=== PATIENT | male | born 1980 | race Caucasian/White ===

== ENCOUNTER 2018-01-09 18:24 | Emergency (ER) | payer OTHER ==
[~2018-01-09] VITALS: Ht 185.4 cm; Wt 95.5 kg
[2018-01-09 18:38] VITALS: BP 140/83
[2018-01-09] MEDS ORDERED: HYDROcodone/acetaminophen 5mg/325mg tablet PO ONE (20:55)
[2018-01-09] MEDS ORDERED: IBUP-1986 PO (22:28)
== END 2018-01-09 22:34 | disposition home or self-care (01) ==
LOC: ER 18:25
DX: S82.832A Other fracture of upper and lower end of left fibula, initial encounter for closed fracture (principal); S50.312A Abrasion of left elbow, initial encounter; S80.212A Abrasion, left knee, initial encounter; Z56.0 Unemployment, unspecified; V19.9XXA Pedal cyclist (driver) (passenger) injured in unspecified traffic accident, initial encounter; Y93.89 Activity, other specified; Y92.89 Other specified places as the place of occurrence of the external cause; Y99.8 Other external cause status
CPT/HCPCS: 29515; 73080; 73564; 73590; 99284

== ENCOUNTER 2020-02-07 11:35 | Emergency (ER) | payer MEDICAID ==
[~2020-02-07] VITALS: Ht 185.4 cm; Wt 107.0 kg
[~2020-02-07 11:35] MED LIST: IBUP-1986 PO
[2020-02-07 11:50] VITALS: BP 160/87
--- NOTE | 2020-02-07 12:11 | NUR ---
Seen and assessed by provider.
== END 2020-02-07 12:12 | disposition home or self-care (01) ==
LOC: ER 11:35
DX: F15.10 Other stimulant abuse, uncomplicated (principal); Z72.89 Other problems related to lifestyle; Z56.0 Unemployment, unspecified; Z79.899 Other long term (current) drug therapy
CPT/HCPCS: 99281

== ENCOUNTER 2020-07-04 14:11 | Emergency (ER) | payer MEDICAID ==
[~2020-07-04] VITALS: Ht 185.4 cm; Wt 112.7 kg
[2020-07-04 14:59] VITALS: BP 151/92
[2020-07-04 15:37] LABS: BASOPHILS # (AUTO) 0.1 X10'3 (0-0.2); EOSINOPHILS # (AUTO) 0.1 X10'3 (0-0.9); EOSINOPHILS % (AUTO) 1.5 % (0-6); HEMATOCRIT 48.2 % (42.0-52.0); HEMOGLOBIN 16.9 g/dl (14.0-17.9); LYMPHOCYTES % (AUTO) 31.3 % (21-51); MEAN CORPUSCULAR HEMOGLOBIN 32.5 PG (27.0-31.0); MEAN CORPUSCULAR VOLUME 92.6 FL (78-98); MEAN PLATELET VOLUME 8.7 FL (7.4-10.4); MONOCYTES # (AUTO) 0.6 X10'3 (0-0.9); NEUTROPHILS # (AUTO) 3.6 X10'3 (1.8-7.7); NEUTROPHILS % (AUTO) 56.2 % (42-75); PLATELET COUNT 182 X10'3 (140-440); RED BLOOD COUNT 5.21 X10'6 (4.70-6.10); RED CELL DISTRIBUTION WIDTH 12.7 % (11.5-14.5); WHITE BLOOD COUNT 6.5 X10'3 (4.5-11.0)
[2020-07-04 15:50] LABS: ALANINE AMINOTRANSFERASE 48 U/L (12-78); ALBUMIN 3.8 G/DL (3.4-5.0); ALBUMIN/GLOBULIN RATIO 0.9 (1.1-1.5); ALKALINE PHOSPHATASE 49 IU/L (46-116); ANION GAP 10 (8-16); ASPARTATE AMINO TRANSFERASE 27 U/L (10-37); BILIRUBIN,TOTAL 0.6 MG/DL (0.1-1.0); BLOOD UREA NITROGEN 16 MG/DL (7-18); BUN/CREATININE RATIO 17.2 (5.4-32.0); CALCIUM 9.6 MG/DL (8.5-10.1); CHLORIDE 107 MMOL/L (99-107); CREATININE 0.93 MG/DL (0.60-1.10); GLUCOSE 102 MG/DL (70-104); SODIUM 141 MMOL/L (135-145); TOTAL CARBON DIOXIDE 24.1 MMOL/L (24-32); TOTAL PROTEIN 7.9 G/DL (6.4-8.2); eGFR > 90 ML/MIN
== END 2020-07-04 16:05 | disposition home or self-care (01) ==
LOC: ER 14:12
DX: R53.83 Other fatigue (principal); J02.9 Acute pharyngitis, unspecified; R05 Cough; R09.81 Nasal congestion; Z86.19 Personal history of other infectious and parasitic diseases; Z79.899 Other long term (current) drug therapy; Z72.89 Other problems related to lifestyle; Z56.0 Unemployment, unspecified
CPT/HCPCS: 36415; 80053; 85025; 99283

== ENCOUNTER 2020-09-19 12:20 | Emergency (ER) | payer MEDICAID ==
[~2020-09-19] VITALS: Ht 185.4 cm; Wt 105.6 kg
[2020-09-19 12:29] VITALS: BP 135/81
[2020-09-19] MEDS ORDERED: NICO-687 TOP (13:08)
== END 2020-09-19 13:16 | disposition home or self-care (01) ==
LOC: ER 12:20
DX: F15.10 Other stimulant abuse, uncomplicated (principal); Z72.0 Tobacco use; Z72.89 Other problems related to lifestyle; Z56.0 Unemployment, unspecified; Z79.899 Other long term (current) drug therapy
CPT/HCPCS: 99282

== ENCOUNTER 2021-06-14 23:35 | Emergency (ER) | payer MEDICAID ==
[~2021-06-14] VITALS: Ht 188 cm; Wt 114.5 kg
[2021-06-15 00:07] VITALS: BP 173/93
[2021-06-15] MEDS ORDERED: HYDROcodone/acetaminophen 10/325mg tab PO ONE (02:05)
== END 2021-06-15 02:18 | disposition home or self-care (01) ==
LOC: ER 23:35
DX: U07.1 COVID-19 (principal); R50.9 Fever, unspecified; G43.909 Migraine, unspecified, not intractable, without status migrainosus; F17.200 Nicotine dependence, unspecified, uncomplicated; Z72.89 Other problems related to lifestyle; Z56.0 Unemployment, unspecified; Z79.899 Other long term (current) drug therapy
CPT/HCPCS: 99283

== ENCOUNTER 2021-10-15 01:25 | Emergency (ER) | payer MEDICAID ==
[~2021-10-15] VITALS: Ht 185.4 cm; Wt 84.1 kg
[2021-10-15 02:06] LABS: BASOPHILS # (AUTO) 0.1 X10'3 (0-0.2); BASOPHILS % (AUTO) 0.9 % (0-1); EOSINOPHILS # (AUTO) 0.2 X10'3 (0-0.9); EOSINOPHILS % (AUTO) 3.1 % (0-6); HEMOGLOBIN 16.1 g/dl (14.0-17.9); LYMPHOCYTES # (AUTO) 1.2 X10'3 (1.1-4.8); LYMPHOCYTES % (AUTO) 19.6 % (21-51); MEAN CORPUSCULAR HEMOGLOBIN 30.7 PG (27.0-31.0); MEAN CORPUSCULAR HGB CONC 34.3 g/dL (33.0-36.5); MEAN CORPUSCULAR VOLUME 89.4 FL (78-98); MEAN PLATELET VOLUME 8.1 FL (7.4-10.4); MONOCYTES # (AUTO) 0.4 X10'3 (0-0.9); MONOCYTES % (AUTO) 6.6 % (2-12); NEUTROPHILS # (AUTO) 4.3 X10'3 (1.8-7.7); NEUTROPHILS % (AUTO) 69.8 % (42-75); PLATELET COUNT 186 X10'3 (140-440); RED BLOOD COUNT 5.26 X10'6 (4.70-6.10); RED CELL DISTRIBUTION WIDTH 12.8 % (11.5-14.5); WHITE BLOOD COUNT 6.2 X10'3 (4.5-11.0)
[2021-10-15 02:20] LABS: ALANINE AMINOTRANSFERASE 46 U/L (12-78); ALBUMIN 3.9 G/DL (3.4-5.0); ALKALINE PHOSPHATASE 65 IU/L (46-116); ANION GAP 8 (8-16); ASPARTATE AMINO TRANSFERASE 41 U/L (10-37); BILIRUBIN,TOTAL 0.3 MG/DL (0.1-1.0); BLOOD UREA NITROGEN 16 MG/DL (7-18); BUN/CREATININE RATIO 14.3 (5.4-32.0); CALCIUM 8.5 MG/DL (8.5-10.1); CHLORIDE 103 MMOL/L (99-107); CREATININE 1.12 MG/DL (0.60-1.10); GLUCOSE 127 MG/DL (70-104); POTASSIUM 3.7 MMOL/L (3.5-5.1); SODIUM 138 MMOL/L (135-145); TOTAL CARBON DIOXIDE 27.1 MMOL/L (24-32); TOTAL PROTEIN 7.8 G/DL (6.4-8.2); eGFR 73 ML/MIN
[2021-10-15] MEDS ORDERED: NALO4SPR BOTHNARES (03:13)
[2021-10-15 03:23] VITALS: BP 135/82
== END 2021-10-15 03:24 | disposition home or self-care (01) ==
LOC: ER 01:26
DX: T40.411A Poisoning by fentanyl or fentanyl analogs, accidental (unintentional), initial encounter (principal); F19.90 Other psychoactive substance use, unspecified, uncomplicated; Z72.89 Other problems related to lifestyle; Z56.0 Unemployment, unspecified; Z79.899 Other long term (current) drug therapy; Y92.89 Other specified places as the place of occurrence of the external cause
CPT/HCPCS: 36415; 71045; 80053; 85025; 93005; 99285

== ENCOUNTER 2022-03-08 20:20 | Emergency (ER) | payer MEDICAID ==
[~2022-03-08] VITALS: Ht 185.4 cm; Wt 104.3 kg
[~2022-03-08 20:20] MED LIST changes: +NALO4SPR BOTHNARES
[2022-03-08 20:27] VITALS: BP 155/94
[2022-03-08] MEDS ORDERED: diphenhydrAMINE 50 mg/ml inj IV ONE (20:40)
[2022-03-08] MEDS ORDERED: famotidine/PF 10 mg/ml inj IV ONE (20:40)
[2022-03-08] MEDS ORDERED: epiNEPHrine 1 mg/ml inj IM STA (20:40)
[2022-03-08] MEDS ORDERED: methylPREDNISolone sod succ 125mg/2ml vial IV ONE (20:40)
[2022-03-09] MEDS ORDERED: EPIN0.3P3 IM (18:30)
== END 2022-03-08 22:03 | disposition home or self-care (01) ==
LOC: ER 20:24
DX: R13.10 Dysphagia, unspecified (principal); T38.0X5A Adverse effect of glucocorticoids and synthetic analogues, initial encounter; T47.0X5A Adverse effect of histamine H2-receptor blockers, initial encounter; T45.0X5A Adverse effect of antiallergic and antiemetic drugs, initial encounter; F19.90 Other psychoactive substance use, unspecified, uncomplicated; Z72.89 Other problems related to lifestyle; Z56.0 Unemployment, unspecified; Z79.899 Other long term (current) drug therapy; Y92.89 Other specified places as the place of occurrence of the external cause
CPT/HCPCS: 96372; 96374; 96375; 99291; J0171; J1200; J2930; J3490

== ENCOUNTER 2022-03-30 16:25 | Emergency (ER) | payer MEDICAID ==
[~2022-03-30] VITALS: Ht 185.4 cm; Wt 108.2 kg
[~2022-03-30 16:25] MED LIST changes: +EPIN0.3P3 IM
[2022-03-30 16:28] VITALS: BP 128/75
[2022-03-30] MEDS ORDERED: buprenorphine/naloxone 8MG-2MG SUBlingual film SL SCH (17:16)
== END 2022-03-30 17:35 | disposition home or self-care (01) ==
LOC: ER 16:25
DX: F11.23 Opioid dependence with withdrawal (principal); Z56.0 Unemployment, unspecified; Z79.899 Other long term (current) drug therapy
CPT/HCPCS: 99283

== ENCOUNTER 2023-03-14 23:06 | Emergency (ER) | payer MEDICAID ==
[~2023-03-14] VITALS: Ht 188 cm; Wt 104.0 kg
[2023-03-14 23:17] VITALS: BP 138/77; PULSE 72; TEMP 98.9; O2SAT 98
[2023-03-14] MEDS ORDERED: famotidine/PF 10 mg/ml inj IV ONE (23:35)
[2023-03-14] MEDS ORDERED: pantoprazole 40mg IV 80 MG in normal saline 100ml IV soln 100 ML IV ONE (23:35)
[2023-03-14] MEDS ORDERED: normal saline 1000ml 1,000 ML IV ONE (23:35)
[2023-03-14] MEDS: pantoprazole 40MG/NS 100ML BAG 100 ML IV SCH (23:44)
[2023-03-15] LABS: BASOPHILS # (AUTO) 0.1 X10'3 (0-0.2); BASOPHILS % (AUTO) 1.1 % (0-1); LYMPHOCYTES # (AUTO) 1.9 X10'3 (1.1-4.8); MONOCYTES # (AUTO) 0.7 X10'3 (0-0.9); WHITE BLOOD COUNT 4.8 X10'3 (4.5-11.0)
[2023-03-15 00:01] LABS: EOSINOPHILS # (AUTO) 0.1 X10'3 (0-0.9); HEMATOCRIT 36.1 % (42.0-52.0); HEMOGLOBIN 12.8 g/dl (14.0-17.9); LYMPHOCYTES % (AUTO) 40.4 % (21-51); MEAN CORPUSCULAR HEMOGLOBIN 31.5 PG (27.0-31.0); MEAN CORPUSCULAR HGB CONC 35.5 g/dL (33.0-36.5); MEAN CORPUSCULAR VOLUME 88.9 FL (78-98); MEAN PLATELET VOLUME 7.9 FL (7.4-10.4); MONOCYTES % (AUTO) 14.1 % (2-12); NEUTROPHILS % (AUTO) 41.4 % (42-75); PLATELET COUNT 179 X10'3 (140-440); RED BLOOD COUNT 4.07 X10'6 (4.70-6.10); RED CELL DISTRIBUTION WIDTH 13.5 % (11.5-14.5)
[2023-03-15 00:09] LABS: ALANINE AMINOTRANSFERASE 32 U/L (12-78); ALBUMIN 3.4 G/DL (3.4-5.0); ALBUMIN/GLOBULIN RATIO 0.9 (1.1-1.5); ALKALINE PHOSPHATASE 67 IU/L (46-116); ANION GAP 7 (8-16); ASPARTATE AMINO TRANSFERASE 24 U/L (10-37); BILIRUBIN,TOTAL 0.5 MG/DL (0.1-1.0); BLOOD UREA NITROGEN 15 MG/DL (7-18); BUN/CREATININE RATIO 17.9 (10.0-20.0); CALCIUM 9.3 MG/DL (8.5-10.1); CHLORIDE 101 MMOL/L (99-107); CREATININE 0.84 MG/DL (0.60-1.10); GLUCOSE 108 MG/DL (70-104); LIPASE 18 U/L (16-77); POTASSIUM 3.8 MMOL/L (3.5-5.1); SODIUM 136 MMOL/L (135-145); TOTAL CARBON DIOXIDE 27.7 MMOL/L (24-32); TOTAL PROTEIN 7.2 G/DL (6.4-8.2); eCRCL 135 ML/MIN; eGFR > 90 ML/MIN
[2023-03-15] MEDS: pantoprazole 40MG/NS 100ML BAG 100 ML IV SCH (00:17)
[2023-03-15] MEDS ORDERED: ONDA8TAB13 PO (00:20)
[2023-03-15] MEDS ORDERED: loperamide 2mg capsule PO ONE (00:20)
[2023-03-15] MEDS ORDERED: ondansetron/PF 4mg/2ml inj IV ONE (00:20)
[2023-03-15] MEDS ORDERED: LOPE2CAP PO (00:20)
--- NOTE | 2023-03-15 00:53 | NUR ---
iv dc'd pt being discharged dressing applied
== END 2023-03-15 00:55 | disposition home or self-care (01) ==
LOC: ER 23:07
DX: K52.9 Noninfective gastroenteritis and colitis, unspecified (principal); Z79.899 Other long term (current) drug therapy
CPT/HCPCS: 36415; 80053; 83690; 84145; 85025; 96365; 96366; 96375; 99284; C9113; J2405; J3490; J7030; 99283

== ENCOUNTER 2023-06-01 14:56 | Emergency (ER) | payer MEDICAID ==
[~2023-06-01] VITALS: Ht 185.4 cm; Wt 109.1 kg
[~2023-06-01 14:56] MED LIST changes: +LOPE2CAP PO; +ONDA8TAB13 PO
[2023-06-01] MEDS ORDERED: DOXYCYCLINE 100MG CAPSULE PO STA (16:23)
[2023-06-01] MEDS ORDERED: tetanus & diphtheria toxoid (Td) vaccine 0.5ml IMVAC ONE (16:25)
[2023-06-01] MEDS ORDERED: TETanus/Pertussis (Acell)/Diphther VAC/PF (Tdap-Adult) 0.5ml syringe IMVAC ONE (16:40)
[2023-06-01 17:12] LABS: BASOPHILS % (AUTO) 0.9 % (0-1); EOSINOPHILS # (AUTO) 0.1 X10'3 (0-0.9); EOSINOPHILS % (AUTO) 1.8 % (0-6); HEMATOCRIT 42.3 % (42.0-52.0); HEMOGLOBIN 14.4 g/dl (14.0-17.9); LYMPHOCYTES % (AUTO) 36.4 % (21-51); MEAN CORPUSCULAR HEMOGLOBIN 30.4 PG (27.0-31.0); MEAN CORPUSCULAR HGB CONC 34.1 g/dL (33.0-36.5); MEAN PLATELET VOLUME 8.1 FL (7.4-10.4); MONOCYTES # (AUTO) 0.7 X10'3 (0-0.9); MONOCYTES % (AUTO) 11.7 % (2-12); NEUTROPHILS # (AUTO) 2.7 X10'3 (1.8-7.7); NEUTROPHILS % (AUTO) 49.2 % (42-75); PLATELET COUNT 206 X10'3 (140-440); RED BLOOD COUNT 4.76 X10'6 (4.70-6.10); RED CELL DISTRIBUTION WIDTH 13.9 % (11.5-14.5); WHITE BLOOD COUNT 5.6 X10'3 (4.5-11.0)
[2023-06-01 17:24] LABS: ALANINE AMINOTRANSFERASE 37 U/L (12-78); ALBUMIN 3.6 G/DL (3.4-5.0); ALBUMIN/GLOBULIN RATIO 0.8 (1.1-1.5); ALKALINE PHOSPHATASE 74 IU/L (46-116); ANION GAP 7 (8-16); ASPARTATE AMINO TRANSFERASE 27 U/L (10-37); BILIRUBIN,TOTAL 0.3 MG/DL (0.1-1.0); BLOOD UREA NITROGEN 14 MG/DL (7-18); BUN/CREATININE RATIO 14.3 (10.0-20.0); C-REACTIVE PROTEIN 0.06 MG/DL (0.0-0.5); CALCIUM 9.2 MG/DL (8.5-10.1); CHLORIDE 101 MMOL/L (99-107); CREATININE 0.98 MG/DL (0.60-1.10); GLUCOSE 95 MG/DL (70-104); POTASSIUM 4.1 MMOL/L (3.5-5.1); SODIUM 136 MMOL/L (135-145); TOTAL CARBON DIOXIDE 27.6 MMOL/L (24-32); eCRCL 112 ML/MIN; eGFR 84 ML/MIN
[2023-06-01] MEDS ORDERED: DOXY-224 PO (18:54)
[2023-06-01] MEDS ORDERED: NAPR-56 PO (18:54)
[2023-06-01 19:07] VITALS: BP 119/91; PULSE 100; RESP 14; TEMP 98; O2SAT 100
== END 2023-06-01 19:43 | disposition home or self-care (01) ==
LOC: ER 14:57
DX: L03.011 Cellulitis of right finger (principal); Z56.0 Unemployment, unspecified; Z79.899 Other long term (current) drug therapy; Z23 Encounter for immunization
CPT/HCPCS: 36415; 73130; 80053; 85025; 86140; 90471; 90715; 99284

== ENCOUNTER 2023-09-14 01:12 | Emergency (ER) | payer MEDICAID ==
[~2023-09-14] VITALS: Ht 185.4 cm; Wt 105.0 kg
[2023-09-14 02:28] VITALS: BP 130/77; PULSE 70; RESP 14; TEMP 98.4; O2SAT 98
== END 2023-09-14 02:29 | disposition home or self-care (01) ==
LOC: ER 01:17
DX: Z13.6 Encounter for screening for cardiovascular disorders (principal); Z79.899 Other long term (current) drug therapy; Z79.1 Long term (current) use of non-steroidal anti-inflammatories (NSAID)
CPT/HCPCS: 93005; 99283